=== PATIENT | female | born 1965 | race Caucasian/White ===

== ENCOUNTER → 2018-01-06 | Outpatient (CLI) | payer BC ==
--- NOTE | 2018-01-06 12:45 | RADIOLOGY REPORT (SQ) ---
EXAM DESCRIPTION: WRIST RIGHT 3 VIEWS COMPLETED DATE/TIME: 01/06/2018 12:04 pm REASON FOR STUDY: PAIN IN RIGHT WRIST M25.531 PAIN IN RIGHT WRIST COMPARISON: None. NUMBER OF VIEWS: Three views. TECHNIQUE: AP, lateral, and oblique radiographic images acquired of the right wrist. LIMITATIONS: None. FINDINGS: MINERALIZATION: Normal. BONES: No acute fracture or dislocation. Old healed spiral fractures of the right 2nd and 3rd metaca rpal diaphyses. SOFT TISSUES: No soft tissue swelling. No foreign body. OTHER: No other significant finding. IMPRESSION: No acute fracture or malalignment. Old healed spiral fractures of the 2nd and 3rd metacarpals TECHNICAL DOCUMENTATION: JOB ID: [id number] [employer] All Rights Reserved Reading location - IP/workstation name: [email or web address]
== END ==
LOC: RAD 11:47
PROVIDERS: ATTEND Nurse Practitioner Acute Care
DX: M25.531 Pain in right wrist (principal)